=== PATIENT | female | born 1960 | race Caucasian/White ===

== ENCOUNTER 2016-08-14 22:40 | Emergency (ER) | payer MEDICAID ==
[~2016-08-14] VITALS: Ht 154.9 cm; Wt 65.0 kg
[~2016-08-14 22:40] MED LIST: ALBU18HF INHALATION; AMLO-145 PO; AMLO-218 PO; PRED20TA PO; UDROBDM PO
[2016-08-14 22:41] VITALS: Ht 154.9 cm; Wt 65.0 kg
[2016-08-14] MEDS ORDERED: HYDROmorphONE 1 MG/ML SYG IV STA (23:05)
[2016-08-14] MEDS ORDERED: ONDANSETRON 4 MG INJ IV STA (23:05)
[2016-08-14] MEDS ORDERED: NICARDipine HCL 30 MG CAPSULE PO ONE (23:30)
[2016-08-14] MEDS ORDERED: hydrALAzine 20 MG INJ IV ONE (23:30)
[2016-08-15] MEDS ORDERED: hydrALAzine 20 MG INJ IV ONE (00:30)
[2016-08-15] MEDS ORDERED: NICARDipine HCL 30 MG CAPSULE PO ONE (00:30)
--- NOTE | 2016-08-15 00:53 | RADRPT ---
PROCEDURE: CT brain without contrast CLINICAL INDICATION: Headaches TECHNIQUE: A CT of the brain was performed utilizing axial sections from the skull base through th e vertex without contrast. Sagittal and coronal images were also reformatted. The exam CTDIvol = 45. 01 mGy and DLP = 720.23 mGy-cm. COMPARISON: 12/31/2013 FINDINGS: No acute intracranial hemorrhage is identified. There is no mass effect or midline shift. No extra -axial fluid collection is seen. The ventricles and sulci are within normal limits for size and con figuration. The density of the brain is within normal limits. Hernandez-white differentiation is preser michi. The osseous structures are unremarkable. The mastoid air cells and visualized paranasal sinuses are clear. RPTAT:HJJR IMPRESSION: 1.Unremarkable noncontrast CT of the brain without findings to explain the patient's provided histor y or change from 12/31/2013. 2. Given the persistence of the patient's symptoms since the prior study, consideration should be gi opal for future evaluation with MRI and MRA of the brain. Physician Barbi Date Time Electronically viewed and signed by Physician Barbi on 08/15/2016 00:52 /
[2016-08-15] MEDS ORDERED: OLME20TA20 PO (01:27)
[2016-08-15] MEDS ORDERED: AMLO-218 PO (01:27)
--- NOTE | 2016-08-15 01:30 | ERD ---
ER Documentation Chief Complaint Date/Time DATE: 08/15/16 TIME: 01:28 Chief Complaint PT C/O HIGH BLOOD PRESSURE AND CARSON TODAY, NO BP RX X 2 MONTHS, +N/V, DIZZY HPI This is a 56-year-old female who has been out of her Norvasc 10 mg for the past 2 months. She says she developed a gradual onset of diffuse headache that is throbbing. She is nauseated with no vomiting no blurry vision she does have a little bit of dizziness. She says she felt like this before when her blood pressure was high so she took her blood pressure and she had a reading of 200/ 100. She has no focal neurological complaints no chest pain no shortness of breath no dyspnea on exertion. ROS All systems reviewed and are negative except as per history of present illness. Medications Home Meds Active Scripts Olmesartan Medoxomil (Benicar) 20 Mg Tablet, 20 MG PO DAILY, #30 TAB Prov:GEO BE. DO 08/15/16 Amlodipine Besylate* (Norvasc*) 10 Mg Tablet, 10 MG PO DAILY, #30 TAB Prov:GEO BE DO 08/15/16 Amlodipine Besylate* (Norvasc*) 10 Mg Tablet, 10 MG PO DAILY, #30 TAB Prov:JARETH TURNER PA-C 06/05/15 Guaifenesin-Dextromethorphan* (Robitussin* DM) 100MG/10MG/5ML Syrup, 5 ML PO Q6H Y for COUGH, #240 ML 0 Refills Prov:TEJA COYLE PA-C 06/05/15 Prednisone (Prednisone) 20 Mg Tab, 20 MG PO BID, #10 TAB 0 Refills Prov:TEJA COYLE PA-C 06/05/15 Albuterol Sulfate* (Ventolin HFA*) 18 Gm Hfa.aer.ad, 2 PUFF INHALATION Q6H, #1 INHALER 0 Refills Prov:TEJA COYLE PA-C 06/05/15 Reported Medications Amlodipine Besylate* (Amlodipine Besylate*) 5 Mg Tablet, 5 MG PO DAILY 03/22/12 Allergies Allergies: Coded Allergies: No Known Allergy (Verified , 06/04/15) PMhx/Soc History of Surgery: Yes (HYSTERECTOMY) Anesthesia Reaction: No Hx Neurological Disorder: No Hx Respiratory Disorders: No Hx Cardiac Disorders: Yes (HTN) Hx Psychiatric Problems: No Hx Miscellaneous Medical Probl: Yes (DM, HIGH CHOLESTEROL, Asthma ) Hx Alcohol Use: No Hx Substance Use: No Hx Tobacco Use: No Smoking Status: Never smoker FmHx Family History: No coronary disease Physical Exam Vitals Vital Signs Date Time Temp Pulse Resp B/P Pulse Ox O2 Delivery O2 Flow Rate FiO2 08/15/16 00:40 83 16 183/101 100 Room Air 08/14/16 22:41 100.8 89 16 196/111 97 Physical Exam Const: Well-developed, well-nourished Head: Atraumatic, normocephalic Eyes: Normal Conjunctiva, PERRLA, EOMI, normal sclera, no nystagmus ENT: Normal External Ears, Nose and Mouth, moist mucus membranes. Neck: Full range of motion. No meningismus, no lymphadenopathy. Resp: Clear to auscultation bilaterally, no wheezing, rhonchi, rales Cardio: Regular rate and rhythm, no murmurs, S1 S2 present Abd: Soft, non tender x 4, non distended. Normal bowel sounds, no guarding or rebound, no pulsitile abdominal masses or bruits Skin: No petechiae or rashes, no ecchymosis , no maculopapular rash Back: No midline or flank tenderness Ext: No cyanosis, or edema, FROM x 4, normal inspection, neurovascularly intact x 4 Neur: Awake and alert, STR 5/5 x 4, sensation intact x 4, no focal findings, cerebellum intact Psych: Normal Mood and Affect Results 24 hrs Current Medications Medications (Trade) Dose Ordered Sig/Gianfranco Route PRN Reason Start Time Stop Time Status Last Admin Dose Admin Nicardipine HCl (Cardene) 30 mg ONCE ONCE PO 08/14/16 23:30 08/14/16 23:31 DC 08/14/16 23:12 Hydralazine HCl (Apresoline) 10 mg ONCE ONCE IV 08/14/16 23:30 08/14/16 23:31 DC 08/14/16 23:11 Ondansetron HCl (Zofran Inj) 4 mg ONCE STAT IV 08/14/16 23:05 08/14/16 23:06 DC 08/14/16 23:11 Hydromorphone HCl (Dilaudid) 1 mg ONCE STAT IV 08/14/16 23:05 08/14/16 23:06 DC 08/14/16 23:12 Nicardipine HCl (Cardene) 30 mg ONCE ONCE PO 08/15/16 00:30 08/15/16 00:31 DC 08/15/16 00:58 Hydralazine HCl (Apresoline) 10 mg ONCE ONCE IV 08/15/16 00:30 08/15/16 00:31 DC 08/15/16 00:58 Procedures/MDM PROCEDURE: CT brain without contrast CLINICAL INDICATION: Headaches TECHNIQUE: A CT of the brain was performed utilizing axial sections from the skull base through the vertex without contrast. Sagittal and coronal images were also reformatted. The exam CTDIvol = 45.01 mGy and DLP = 720.23 mGy-cm. COMPARISON: 12/31/2013 FINDINGS: No acute intracranial hemorrhage is identified. There is no mass effect or midline shift. No extra-axial fluid collection is seen. The ventricles and sulci are within normal limits for size and configuration. The density of the brain is within normal limits. Hernandez-white differentiation is preserved. The osseous structures are unremarkable. The mastoid air cells and visualized paranasal sinuses are clear. RPTAT:HJJR IMPRESSION: 1.Unremarkable noncontrast CT of the brain without findings to explain the patient's provided history or change from 12/31/2013. 2. Given the persistence of the patient's symptoms since the prior study, consideration should be given for future evaluation with MRI and MRA of the brain. Physician Barbi Date Time Electronically viewed and signed by Physician Barbi on 08/15/2016 00:52 JR/ CC: GEO BE DO Patient received IV hydralazine and Cardene p.o. Current blood pressure is 144/90, she has no headache Patient will be discharged on Norvasc and Benicar No evidence of intracranial pathology Departure Diagnosis: Primary Impression: Hypertensive crisis Condition: Stable Patient Instructions: Hypertension, Established, Out Of Control GEO BE DO August 15, 2016 01:30
[2016-08-15 01:59] VITALS: BP 133/79; PULSE 77; RESP 16; TEMP 98.1
== END 2016-08-15 02:08 | disposition home or self-care (01) ==
LOC: E/R 22:40
DX: I16.9 Hypertensive crisis, unspecified (principal); I10 Essential (primary) hypertension; J45.909 Unspecified asthma, uncomplicated; E11.9 Type 2 diabetes mellitus without complications
CPT/HCPCS: 70450; 96374; 96375; 96376; J0360; J1170; J2405; Z7502; Z7610

== ENCOUNTER 2017-01-11 19:43 | Emergency (ER) | payer SELFPAY ==
[~2017-01-11] VITALS: Ht 160 cm; Wt 67.5 kg
[~2017-01-11 19:43] MED LIST changes: +OLME20TA20 PO
[2017-01-11 20:05] VITALS: Ht 160 cm; Wt 67.5 kg
[2017-01-11 20:55] VITALS: TEMP 98
[2017-01-11] MEDS ORDERED: AMLO-218 PO (20:59)
[2017-01-11] MEDS ORDERED: NICARDipine HCL 30 MG CAPSULE PO ONE (21:00)
[2017-01-11 21:39] VITALS: BP 175/97; PULSE 60; RESP 14
--- NOTE | 2017-01-11 23:17 | ERD ---
ER Documentation Chief Complaint Date/Time DATE: 01/11/17 TIME: 23:15 Chief Complaint pt out of bp meds for 2 weeks HPI Patient is a 56-year-old female with hypertension and diabetes who presents with high blood pressure. She has not taken her medicines for the past 2 weeks because she ran out. She was having headache and nausea. She denies vomiting. She has no fevers. She is supposed to be taking Norvasc 10 mg daily. There is been no recent head injury. Upon review of old medical records this is the patient's ninth visit to the ER since 2008 and many of her visits were for high blood pressure. She does have a primary doctor. ROS All systems reviewed and are negative except as per history of present illness. Medications Home Meds Active Scripts Amlodipine Besylate* (Norvasc*) 10 Mg Tablet, 10 MG PO DAILY for 30 Days, TAB Prov:BERNARDO VOGEL MD 01/11/17 Discontinued Reported Medications Amlodipine Besylate* (Amlodipine Besylate*) 5 Mg Tablet, 5 MG PO DAILY 03/22/12 Discontinued Scripts Olmesartan Medoxomil (Benicar) 20 Mg Tablet, 20 MG PO DAILY, #30 TAB Prov:GEO BE DO 08/15/16 Amlodipine Besylate* (Norvasc*) 10 Mg Tablet, 10 MG PO DAILY, #30 TAB Prov:FLORA BESTJENNIFER AChapo DO 08/15/16 Amlodipine Besylate* (Norvasc*) 10 Mg Tablet, 10 MG PO DAILY, #30 TAB Prov:JARETH TURNER PA-C 06/05/15 Guaifenesin-Dextromethorphan* (Robitussin* DM) 100MG/10MG/5ML Syrup, 5 ML PO Q6H Y for COUGH, #240 ML 0 Refills Prov:TEJA COYLE PA-C 06/05/15 Prednisone (Prednisone) 20 Mg Tab, 20 MG PO BID, #10 TAB 0 Refills Prov:TEJA COYLE PA-C 06/05/15 Albuterol Sulfate* (Ventolin HFA*) 18 Gm Hfa.aer.ad, 2 PUFF INHALATION Q6H, #1 INHALER 0 Refills Prov:TEJA COYLE PA-C 06/05/15 Allergies Allergies: Coded Allergies: No Known Allergy (Verified , 01/11/17) PMhx/Soc History of Surgery: Yes (HYSTERECTOMY) Anesthesia Reaction: No Hx Neurological Disorder: No Hx Respiratory Disorders: No (Asthma) Hx Cardiac Disorders: Yes (HTN) Hx Psychiatric Problems: No Hx Miscellaneous Medical Probl: Yes (DM, HIGH CHOLESTEROL, Asthma ) Hx Alcohol Use: No Hx Substance Use: No Hx Tobacco Use: No Smoking Status: Never smoker FmHx Family History: No diabetes Physical Exam Vitals Vital Signs Date Time Temp Pulse Resp B/P Pulse Ox O2 Delivery O2 Flow Rate FiO2 01/11/17 21:39 60 14 175/97 100 Room Air 01/11/17 21:31 62 12 200/97 99 Room Air 01/11/17 20:55 98.0 55 14 213/112 99 Room Air 01/11/17 20:05 98.0 59 16 215/102 98 Physical Exam Const: No acute distress Head: Atraumatic Eyes: Normal Conjunctiva ENT: Normal External Ears, Nose and Mouth. Neck: Full range of motion..~ No meningismus. Resp: Clear to auscultation bilaterally Cardio: Regular rate and rhythm, no murmurs Abd: Soft, non tender, non distended. Normal bowel sounds Skin: No petechiae or rashes Back: No midline or flank tenderness Ext: No cyanosis, or edema Neur: Awake and alert, cranial nerves II through XII intact, strength is 5 out of 5 in all 4 extremities Psych: Normal Mood and Affect Results 24 hrs Current Medications Medications (Trade) Dose Ordered Sig/Gianfranco Route PRN Reason Start Time Stop Time Status Last Admin Dose Admin Nicardipine HCl (Cardene) 30 mg ONCE ONCE PO 01/11/17 21:00 01/11/17 21:01 DC 01/11/17 21:17 Procedures/MDM Patient is a 56-year-old female presents with acute on chronic hypertension. She was given Cardene by mouth and I believe outpatient management is appropriate. I doubt intracranial hemorrhage or mass. I doubt stroke. I doubt acute coronary syndrome. I doubt hypertensive emergency. The patient will be discharged with a prescription for Norvasc for 1 month but will need to follow-up with her primary doctor for further refills. She can return for any worsening symptoms. I told her to try to avoid running out of her medication in the future and to get the medication refill prior to it running out. Departure Diagnosis: Primary Impression: Hypertension Hypertension type: essential hypertension Qualified Code: I10 - Essential hypertension Additional Impression: Hypertensive crisis Condition: Fair Patient Instructions: High Blood Pressure (Hypertension) Referrals: Dr. House Additional Instructions: Llame al doctor nombrado medina (Referral Sources) MAANA y armando donna OMARI PARA DENTRO DE DONNA SEMANA. Dgale a la secretaria que nosotros le instruimos hacer esta omari.Avise o llame si neves condicin se empeora antes de la omari. BERNARDO VOGEL MD Jan 11, 2017 23:17
== END 2017-01-11 21:40 | disposition home or self-care (01) ==
LOC: E/R 19:43
DX: I10 Essential (primary) hypertension (principal); I16.9 Hypertensive crisis, unspecified; E11.9 Type 2 diabetes mellitus without complications; J45.909 Unspecified asthma, uncomplicated
CPT/HCPCS: 99283

== ENCOUNTER 2018-03-15 18:44 | Emergency (ER) | END 2018-03-15 21:20 | disposition home or self-care (01) ==